=== PATIENT | female | born 1995 | race Caucasian/White ===

== ENCOUNTER 2018-05-22 21:28 | Emergency (ER) | payer BC, OTHER ==
--- NOTE | 2018-05-22 21:41 | ER Report ---
History and Physical Time Seen By MD: 21:40 Hx. of Stated Complaint: fell swing dancing last tues, hit head. still having headaches. went to [facility], told to come here for a CT HPI/ROS CHIEF COMPLAINT: concussion HISTORY OF PRESENT ILLNESS: This is a 22 year old female. She fell 9 days ago while swing dancing. Hit her head, dazed, but no LOC. Since then with headache, blurred vision, difficult concentration, nausea, ringing in ears, dizzy. Repeats things to friends. Concern for worse problem. Has had many concussions in the past, some with symptoms lasting for months. Allergies: Coded Allergies: amoxicillin (Verified Allergy, Intermediate, 05/22/18) Home Meds No Active Prescriptions or Reported Meds Reviewed Nurses Notes: Yes Hx Substance Use Disorder: No Hx Alcohol Use: Yes (socially) Constitutional Vital Sign - Last 24 Hours 05/22/18 05/22/18 05/22/18 05/22/18 21:28 21:32 21:33 21:43 Temp 97.5 Pulse ??? 104 92 Resp 12 B/P (MAP) 141/97 141/97 (112) Pulse Ox 93 97 O2 Delivery Room Air 05/22/18 05/22/18 05/22/18 05/22/18 21:58 22:00 22:13 22:28 Pulse 91 86 ??? B/P (MAP) 141/106 (118) Pulse Ox 95 95 05/22/18 05/22/18 05/22/18 05/22/18 22:32 22:43 22:58 23:00 Pulse 86 85 B/P (MAP) 120/97 (105) 131/93 (106) Pulse Ox 96 95 05/22/18 23:13 Pulse 86 Pulse Ox 96 Physical Exam General Appearance: Alert, no distress. Eyes: Pupils equal and round no injection. Extraocular movements are intact. Reactive to light. ENT: Moist mucous membranes. Normal oropharynx, oral mucosa. Neck: Neck is supple and non tender. Respiratory: Breathing easily. Cardiac: regular rate and rhythm Musculoskeletal: Extremities have full range of motion. No pain in the neck. Neuro: No focal deficits. DIFFERENTIAL DIAGNOSIS: After history and physical exam differential diagnosis was considered for likely concussion, but will get CT scan to rule out worse p athology such a intracranial bleeding. Medical Decision Making EKG/Imaging Imaging HEAD CT: Indication: Injury. Technique: Contiguous axial sections were obtained from the base to the vertex without contrast enhancement. One of the following dose optimization techniques was utilized in the performance of this exam: Automated exposure control; adjustment of the mA and/or kV according to the patient's size; or use of an iterative reconstruction technique. Specific details can be referenced in the facility's radiology CT exam operational policy. Comparison: None. Findings: There is no evidence of intra-axial or extra-axial hemorrhage. No focal areas of decreased or increased attenuation are identified. There is no evidence of mass, edema, or shift of the midline structures. The size, shape, and configuration of the ventricular system are normal. The skeletal structures are intact and unremarkable. There is no evidence of fracture or other acute deformity. The visualized paranasal sinuses and mastoid air cells are clear. Impression: Unremarkable unenhanced head CT. Report Dictated By: Christopher Kowalski MD at 05/22/2018 10:47 PM ED Course/Re-evaluation ED Course Negative head CT. Brief discussion of Concussion, treatment, and follow-up. Decision to Disposition Date: May 22, 2018 Decision to Disposition Time: 23:34 Depart Departure Latest Vital Signs Vital Signs Date Time Temp Pulse Resp B/P (MAP) Pulse Ox O2 Delivery O2 Flow Rate FiO2 05/22/18 23:13 86 96 05/22/18 23:00 131/93 (106) 05/22/18 21:32 97.5 12 Room Air Impression: Primary Impression: Concussion Condition: Improved Disposition: HOME OR SELF-CARE New Scripts No Active Prescriptions or Reported Meds Patient Instructions: Concussion (ED), Post Concussion Syndrome (ED) Additional Instructions: Concussion symptoms include: headache, nausea/vomiting, dizziness, difficulty concentrating, blurred vision. These symptoms can be mild or moderate. If symptoms become severe, follow-up evaluation is needed. Avoid any heavy physical activity and avoid any activities that may cause repeat head injury. Concussion symptoms can last for days or weeks. There is no way to predict how long these will last. It is okay to sleep after a head injury. Just make sure someone is with you for the next 12 hours and that they check 1-2 hours to make sure you are still doing okay. Return to the ER for any altered mental status changes or confusion, or if one pupil is larger than the other, or if there are other abnormal or severe changes. Use Tylenol or ibuprofen as needed for pain and headache Consider follow-up with a concussion specialist, especially with prolonged symptoms several months or more. Problem Qualifiers Primary Impression: Concussion Encounter type: initial encounter Loss of consciousness presence/duration: without LOC Qualified Codes: S06.0X0A - Concussion without loss of consciousness, initial encounter LUIS MIGUEL DOWNEY MD May 22, 2018 21:41
--- NOTE | 2018-05-22 22:53 | RADIOLOGY IMAGING REPORT ---
FACILITY: [facility] PATIENT NAME: Marisela Sheets : 1995 MR: [id number] V: [id number] EXAM DATE: ORDERING PHYSICIAN: LUIS MIGUEL DOWNEY TECHNOLOGIST: [facility] Patient: Marisela Sheets : 1995 Visit/Account:[id number] Date of Sevice: 05/22/[address]: Indication: Injury. Technique: Contiguous axial sections were obtained from the base to the vertex without contrast enhan cement. One of the following dose optimization techniques was utilized in the performance of this exam: Autom ated exposure control; adjustment of the mA and/or kV according to the patient's size; or use of an i terative reconstruction technique. Specific details can be referenced in the facility's radiology CT exam operational policy. Comparison: None. Findings: There is no evidence of intra-axial or extra-axial hemorrhage. No focal areas of decreased or increased attenuation are identified. There is no evidence of mass, edema, or shift of the midline structures. The size, shape, and configuration of the ventricular system are normal. The skeletal st ructures are intact and unremarkable. There is no evidence of fracture or other acute deformity. The visualized paranasal sinuses and mastoid air cells are clear. Impression: Unremarkable unenhanced head CT. Report Dictated By: Christopher Kowalski MD at 05/22/2018 10:47 PM Report E-Signed By: Christopher Kowalski MD at 05/22/2018 10:49 PM [id number]
[2018-05-22 23:00] VITALS: BP 131/93
== END 2018-05-22 23:37 | disposition home or self-care (01) ==
LOC: ER 21:43
DX: S06.0X0A Concussion without loss of consciousness, initial encounter (principal)
CPT/HCPCS: 70450; 99284